=== PATIENT | male | born 1950 | race Caucasian/White ===

== ENCOUNTER 2020-06-02 14:37 | Observation (INO) | payer MEDICARE ==
[~2020-06-02] VITALS: Ht 182.9 cm; Wt 123.4 kg
[2020-06-02 17:33] VITALS: BP 143/92
[2020-06-02] MEDS ORDERED: MONT10TA17 PO (17:46)
[2020-06-02] MEDS ORDERED: BUDE10.2 INH (17:46)
[2020-06-02] MEDS ORDERED: ALBU18HF INH (17:46)
[2020-06-02] MEDS ORDERED: CHOL10003 PO (17:48)
[2020-06-02] MEDS ORDERED: ASCO500C2 PO (17:48)
[2020-06-02] MEDS ORDERED: ASPI81TA45 PO (17:48)
[2020-06-02] MEDS ORDERED: PLEASE ENTER ALLERGIES MC SCH (18:00)
[2020-06-02] MEDS ORDERED: ONDANSETRON ODT 4 MG PO PRN (18:00)
[2020-06-02] MEDS ORDERED: ACETAMINOPHEN 325 MG TABLET PO PRN (18:00)
[2020-06-02] MEDS ORDERED: PLEASE ENTER HEIGHT AND WEIGHT MC SCH (18:00)
[2020-06-02] MEDS ORDERED: ONDANSETRON 2MG/ML, 2ML IVPush PRN (18:00)
[2020-06-02] MEDS ORDERED: NITROGLYCERIN 0.4 MG/SPRAY SL PRN (18:00)
[2020-06-02] MEDS ORDERED: ALBUTEROL HFA 90 MCG/SPRAY INH SCH (18:00)
[2020-06-02] MEDS ORDERED: NITROGLYCERIN 0.4 MG BOTTLE (25 TABS) SL PRN (18:00)
[2020-06-02] MEDS ORDERED: ENOXAPARIN 40 MG/0.4 ML SQ SCH (18:00)
[2020-06-02 18:48] LABS: TROPONIN I 0.072 ng/mL (0.000-0.045)
[2020-06-02] MEDS: ALBUTEROL HFA 90 MCG/SPRAY INH SCH (19:25)
[2020-06-02 20:28] VITALS: BP 122/84
[2020-06-02] MEDS: FAMOTIDINE 20 MG TABLET PO SCH (20:51)
[2020-06-02] MEDS ORDERED: TEMPLATE NON-FORMULARY MED. (Budesonide/Formoterol Fumarate (Symbicort 160-4.5 Mcg Inhaler INH SCH (21:00)
[2020-06-03 00:14] LABS: TROPONIN I 0.068 ng/mL (0.000-0.045)
[2020-06-03 01:23] VITALS: BP 132/79
[2020-06-03 05:32] LABS: BASOPHILS % (AUTO) 1 % (0-1); EOSINOPHILS % (AUTO) 0 % (1-7); LYMPHOCYTES % (AUTO) 13 % (22-44); MEAN CORPUSCULAR HEMOGLOBIN 27.5 pg (27.5-34.5); MEAN CORPUSCULAR HGB CONC 33.2 g/dL (33.2-36.2); MEAN PLATELET VOLUME 9.5 fL (7.4-10.4); MONOCYTES % (AUTO) 7 % (2-9); NEUTROPHILS % (AUTO) 79 % (42-75); PLATELET COUNT 156 x10^3/uL (130-400); RED BLOOD COUNT 5.55 x10^6/uL (4.38-5.82); RED CELL DISTRIBUTION WIDTH 16.5 % (9.4-14.8)
[2020-06-03 05:38] LABS: MD NO
[2020-06-03 05:41] LABS: CHLORIDE 109 mmol/L (98-107)
[2020-06-03 05:56] LABS: ANION GAP 7 mmol/L (5-15); CREATININE 1.01 mg/dL (0.7-1.3); TROPONIN I 0.066 ng/mL (0.000-0.045)
[2020-06-03] MEDS ORDERED: REGADENOSON 0.4 MG/5 ML SYRINGE ONE (07:24)
[2020-06-03 07:58] VITALS: BP 138/91
[2020-06-03] MEDS ORDERED: MONTELUKAST 10 MG TABLET PO SCH (09:00)
[2020-06-03] MEDS ORDERED: FLUTICASONE/VILANTEROL 200-25MCG/INH INH SCH (09:00)
[2020-06-03] MEDS ORDERED: ASPIRIN 81 MG TABLET EC PO SCH (09:00)
[2020-06-03] MEDS: FAMOTIDINE 20 MG TABLET PO SCH (10:47)
[2020-06-03] MEDS: ALBUTEROL HFA 90 MCG/SPRAY INH SCH (10:47)
[2020-06-03] MEDS ORDERED: PRED20TA PO (12:36)
== END 2020-06-03 14:06 | disposition home or self-care (01) ==
LOC: 5SO 17:34 → INTOOBSV 17:34
PROVIDERS: ADMIT Family Medicine; ATTEND Family Medicine
DX: J45.41 Moderate persistent asthma with (acute) exacerbation (principal); R07.81 Pleurodynia; I45.2 Bifascicular block; I50.30 Unspecified diastolic (congestive) heart failure; R79.89 Other specified abnormal findings of blood chemistry; E66.9 Obesity, unspecified; Z79.82 Long term (current) use of aspirin; Z79.899 Other long term (current) drug therapy; Z88.0 Allergy status to penicillin
CPT/HCPCS: 36415; 71045; 78452; 80048; 83735; 84443; 84484; 85025; 93017; 93306; 94640; 96372; A9502; G0378; J1650; J2785; J7512